=== PATIENT | male | born 1995 | race Caucasian/White ===

== ENCOUNTER 2017-08-07 16:09 | Emergency (ER) | payer OTHER ==
--- NOTE | 2017-08-07 16:34 | EDPHY ---
General - History Smoking Status: Never smoked Narrative: CHIEF COMPLAINT: Skiing injury, left rib pain, left elbow pain HISTORY OF PRESENT ILLNESS: Patient complains of left lateral left posterior rib pain, painful inspiration, left elbow pain status post skiing injury. He said that he was skiing at [place] approximately 1 hr ago when he crash. He landed on his left side. He was not wearing a helmet and denies any head strike or loss of consciousness. No neck pain. No headache. No midline back pain. No abdominal pain. No pain in the right arm or either leg. He has severe pain areas of. Worse with movement or inspiration. He has some tingling in the left hand. No lacerations. He has no other associated complaints or modifying factors. Right-hand dominant REVIEW OF SYSTEMS: Ten systems reviewed and are negative unless otherwise noted in the HPI PCP: None SPECIALISTS: None PAST MEDICAL HISTORY: None PAST SURGICAL HISTORY: No recent surgeries SOCIAL HISTORY: Does not smoke cigarettes. Minimal alcohol use. Occasional marijuana use. [employer] student FAMILY HISTORY: Noncontributory EXAMINATION General Appearance: Alert, no distress Head: normocephalic, atraumatic. No Hart sign. No raccoon eyes Eyes: Pupils equal and round, no conjunctival pallor or injection. EOMs intact ENT, Mouth: Mucous membranes moist Neck: Normal inspection, supple, non-tender. No crepitus or deformity. Painless range in all planes. Respiratory: Splinting inspiration. Lungs are clear on the right side of the left lower yeh. There is mild diminishment left upper field. Tenderness to the left mid axillary line and left posterior ribs. No crepitus or paradoxical movements. Cardiovascular: Regular rate and rhythm. No murmur. Symmetric radial pulses 2+ Gastrointestinal: Abdomen is soft and nontender Back: No midline tenderness. No crepitus step-off or deformity. Neurological: GCS 15. A&O, nonfocal, normal gait. Strength is symmetric in the lower extremities. Strength is 5/5 in the right elbow and wrist. Strength is 5/5 in the left box truck washer. Unable to test strength of the elbow or shoulder due to pain on the left upper extremity. Skin: Warm and dry, no rash. No petechiae or purpura. No ecchymosis. No laceration or abrasion. Extremities: Point tenderness of the left elbow medial and lateral. Unable to range the elbow holding in a 90 degree carrying angle. No bony tenderness of the shoulder, hand or anatomic snuffbox. Psychiatric: Mood and affect normal DIFFERENTIAL DIAGNOSES: Including but not limited to rib contusion, rib fracture, pneumothorax, elbow dislocation, sprain, radial head fracture MDM: 4:30 p.m. Injury while skiing 1 hr prior to arrival with pain in the left elbow and left side of the ribs. This is more posterior than anterior. He is splinting his breaths. Vital signs are within normal limits. No head or neck injury. No low back or midline back tenderness. No injuries to the right arm or either leg. X- ray of the left elbow has been ordered. X-ray of the chest with left knee lateral ribs. He is in no acute distress. 4:50 p.m. Patient is currently in x-ray department 5:05 p.m. Plain films as read by me reveals a nondisplaced radial head fracture. There may be 1 posterior rib fracture that is nondisplaced. No pneumothorax. Patient re-evaluated at this time. Remains neuro intact. No acute distress. 5:55 p.m. Contacted by radiologist. X-ray of the chest is read as 3 lateral buckle rib fractures without displacement or pneumothorax. I have re-evaluated the patient at this time. He remains in no acute distress. Mild pain. Vital signs stable. Discharged home with nonweightbearing of the left elbow until seen by orthopedist. Follow up with primary care physician. Incentive spirometry as discussed. Pain medication, muscle relaxant as prescribed as needed. Over-the- counter medication as discussed as needed. ED precautions as discussed. He is comfortable this plan and discharged home stable condition. SUPERVISION: Patient was independently examined, but I discussed the case with my secondary supervising physician Dr. Thomson ([facility]) The patient was evaluated and managed by the physician custody assistant. I have reviewed this chart and I agree with the findings and plan of care as documented , as indicated by my signature. I am the secondary supervising physician. ( Nelda Thomson) - Objective Vital Signs: Initial Vital Signs Temperature (C) 36.4 C 08/07/17 16:12 Heart Rate 68 08/07/17 16:12 Respiratory Rate 18 08/07/17 16:12 Blood Pressure 124/84 H 08/07/17 16:12 O2 Sat (%) 95 08/07/17 16:12 O2 Delivery Mode Room Air Allergies/Adverse Reactions: No Known Allergies Allergy (Verified 08/07/17 16:12) Home Medications: Medication Instructions Recorded Cyclobenzaprine [Flexeril 10 MG 10 mg PO TID PRN #15 tab 08/07/17 (*)] oxyCODONE HCL/ACETAMINOPHEN 1 each PO Q4-6PRN PRN #17 tablet 08/07/17 [Percocet 5-325 mg Tablet] Medications Given: Discontinued Medications Oxycodone/Acetaminophen (Percocet 5/325) 1 tab PO EDNOW ONE Stop: 08/07/17 18:04 Last Admin: 08/07/17 18:20 Dose: 1 tab Departure - Departure Disposition: Home, Routine, Self-Care Clinical Impression: Left radial head fracture, Injury due to skiing accident, Rib fractures Condition: Good Instructions: Elbow Fracture (ED), Rib Fracture (ED), Rib Contusion (ED) Additional Instructions: 1. Ice and [id number] anti-inflammatories as discussed 2. Nonweightbearing on the left elbow until seen by orthopedist 3. Pain medication as prescribed as needed 4. Muscle relaxant as prescribed as needed 5. Contact the on-call orthopedist as provided 6. ED precautions as discussed Referrals: Yoav Parikh MD [Medical Doctor] - As per Instructions Stand Alone Forms: School Excuse Prescriptions: Cyclobenzaprine [Flexeril 10 MG (*)] 10 mg PO TID PRN #15 tab PRN Reason: Spasms oxyCODONE HCL/ACETAMINOPHEN [Percocet 5-325 mg Tablet] 1 each PO Q4-6PRN PRN # 17 tablet PRN Reason: Pain, Breakthrough
[2017-08-07] MEDS ORDERED: OXYCODONE/APAP 5/325 TAB PO ONE (18:03)
[2017-08-07 18:32] VITALS: BP 128/91; PULSE 69; RESP 19; TEMP 98.4; O2SAT 96
== END 2017-08-07 18:30 | disposition home or self-care (01) ==
DX: S52.122A Displaced fracture of head of left radius, initial encounter for closed fracture (principal); S22.42XA Multiple fractures of ribs, left side, initial encounter for closed fracture; V00.321A Fall from snow-skis, initial encounter; Y99.8 Other external cause status; Y93.23 Activity, snow (alpine) (downhill) skiing, snowboarding, sledding, tobogganing and snow tubing

== ENCOUNTER 2018-12-24 16:54 | Emergency (ER) | payer OTHER | END 2018-12-24 17:45 | disposition home or self-care (01) ==